=== PATIENT | male | born 1990 | race Caucasian/White ===

== ENCOUNTER 2019-04-09 20:26 | Emergency (ER) | payer SELFPAY ==
[2019-04-09 20:30] VITALS: BP 133/89; PULSE 110; RESP 18; TEMP 36.4; O2SAT 98; BMI 19.0
[2019-04-09 20:31] VITALS: BMI 19.0
[2019-04-09] MEDS: ketorolac 60 mg/2 mL INJ 30 MG IVP (21:13)
[2019-04-09] MEDS: diphenhydrAMINE 50 mg/mL SDV 1mL IVP (21:13)
[2019-04-09] MEDS: dexamethasone 10 mg/mL INJ 8 MG IV (21:13)
[2019-04-09] MEDS: ondansetron 2 mg/ML SDV 2 mL 4 MG IVP (21:14)
[2019-04-09] MEDS: sodium chloride 0.9% 1,000 ML 999 ML IV (21:14)
--- NOTE | 2019-04-09 22:13 | W.ED.HA ---
HPI - Headache General: Chief Complaint: Headache Stated Complaint: headache,back pain Time Seen by Provider: 04/09/19 20:34 Source: patient Mode of arrival: ambulatory Limitations: no limitations History of Present Illness: HPI Narrative: Patient is a 28-year-old male who presents to ED today with complaints of lower back pain and headache; patient states he was walking when he heard a pop in his lower back and began having pain radiating down into bilateral legs; patient states he started developing a headache afterwards; patient states he has a history of migraine headaches and reports his pain feels similar; patient denies numbness, tingling to his legs; denies saddle anesthesia or bowel or bladder dysfunction MD elicited complaint: headache Onset (ago): hour(s) Exacerbating factors: other (Headache worse with light and sound) Associated symptoms: Deny fever(s), nausea, rash or vomiting Review of Systems Const: Denies: fever, chills or body aches Eyes: Reports: photophobia; Denies: change in vision, blurry vision, eye discomfort or eye discharge ENMT: Denies: throat pain, enlarged tonsils or painful swallowing GI: Denies: nausea or vomiting Musc: Reports: back pain; Denies: neck pain, extremity pain, extremity swelling, joint pain, joint swelling, muscle cramps or muscle weakness Skin/Breast: Denies: rash Neuro: Reports: headache; Denies: numbness in extremities, weakness in extremities, changes in sensation, lack of coordination, dizziness or vertigo PFSH ED PFSH: Statuses (acute, chronic, etc) shown below reflect problem list status as previously entered and may not be historically accurate Social History Smoking and tobacco status: current every day smoker Physical Exam Const: COMMON NORMALS: no apparent distress, average body habitus, oriented x3, no limitations, healthy appearing, alert and well nourished ORIENTATION/CONSCIOUSNESS: Yes oriented to person, Yes oriented to place and Yes oriented to time HENMT: COMMON NORMALS: normocephalic and head/scalp atraumatic HEAD & SCALP: normocephalic and atraumatic Eye: COMMON NORMALS: PERRL and EOMs intact bilaterally PUPIL: Yes PERRL Neck/C-Spine: COMMON NORMALS: full ROM, no lymphadenopathy, supple and no meningeal signs Resp: COMMON NORMALS: normal respiratory effort and clear to auscultation bilaterally AUSCULTATION: clear to auscultation bilaterally Cardio: COMMON NORMALS: regular rate and regular rhythm RATE: regular rate RHYTHM: regular rhythm Back/Pelvis: THORACIC SPINE/UPPER BACK: Yes normal to inspection and Yes thoracic ROM normal LUMBAR SPINE/LOWER BACK: Yes lumbar spinal tenderness and Yes paraspinal muscle tenderness Extremity: COMMON NORMALS: normal to inspection Neuro: PAULINA COMA SCALE: document GCS findings Marlette coma scale eye opening: Spontaneous Paulina coma scale verbal response: Orientated Paulina coma scale motor response: Obey commands Marlette coma scale total score: 15 COMMON NORMALS: oriented x3, moves all extremities, no focal motor deficits and no sensory deficits noted SENSORIUM/ORIENTATION: Yes alert, Yes oriented to person, Yes oriented to place and Yes oriented to time MENINGEAL SIGNS: Yes no meningeal signs CRANIAL NERVES: Yes CN normal except as noted GAIT: Yes normal gait MOTOR EXAM: strength 5/5 throughout OTHER: Negative straight leg raise bilaterally Skin: COMMON NORMALS: no rashes or lesions noted GENERAL SKIN EXAM: no rashes or lesions noted Course Vital Signs: Vital signs: Vital Signs Temperature 97.5 F L 04/09/19 20:30 Pulse Rate 110 H 04/09/19 20:30 Respiratory Rate 18 04/09/19 20:30 Blood Pressure 133/89 04/09/19 20:30 Pulse Oximetry 98 04/09/19 20:30 MDM - Headache MDM Narrative: Medical decision making narrative: Patient states his headache is improving; states he is getting claustrophobic in his room and wants to leave immediately; patient will sign out AMA Discharge Plan Discharge Patient Disposition: Left Against Medical Advice Clinical Impression: Headache Qualifiers: Headache type: unspecified Headache chronicity pattern: acute headache Intractability: not intractable Qualified Code(s): R51 - Headache Condition: Stable Prescriptions: No Action No Known Home Medications RF: 0 Coding Level of Care Code ED [employer] Ac[employer] Attorney for Patira Cohen
== END 2019-04-09 22:44 | disposition left against medical advice (07) ==
PROVIDERS: Emergency Provider Physician Assistant
DX: R51 Headache (principal); Z53.21 Procedure and treatment not carried out due to patient leaving prior to being seen by health care provider; F17.210 Nicotine dependence, cigarettes, uncomplicated
CPT/HCPCS: 96360; 96374; 99281; J1100; J1200; J1885; J2405; J7030

== ENCOUNTER 2019-04-12 20:02 | Emergency (ER) | payer SELFPAY ==
[2019-04-12 20:58] VITALS: BP 112/75; PULSE 113; RESP 18; TEMP 37; O2SAT 98; BMI 19.0
--- NOTE | 2019-04-12 21:32 | ED_ITS ---
Entered by Annabel Rocha, acting as scribe for Elizabeth Mae HPI - General Adult General: Chief complaint: General Medical Stated complaint: FEVER/BODY ACHES Time Seen by Provider: 04/12/19 21:27 Source: patient Mode of arrival: ambulatory Limitations: no limitations History of Present Illness: HPI narrative: 28 yo m came to the er pov for fever and body aches, fever, congestion and cough. Onset was 1 week. Pt states that he was here a few days ago. MD complaint: cough, fever and congestion Onset (ago): week(s) (1 week ago) Location: chest Radiation: non-radiation Pain Consistency: constant Relieving factors: none Associated symptoms: Reports cough, fevers/chills and other (congestion); Deny chest pain, confusion, diaphoresis, dyspnea, headache(s), malaise, nausea, rash, palpitations, syncope or vomiting Review of Systems General: Reports: other (negative unless marked) Const: Denies: fever, chills, body aches, fatigue, malaise or diaphoresis Eyes: Reports: photophobia ENMT: Denies: enlarged tonsils Card: Denies: chest pain, palpitations, irregular heart rhythm, syncope, pre- syncope, shortness of breath on exertion or shortness of breath when lying down Resp: Denies: shortness of breath, productive cough, non-productive cough, wheezing, coughing up blood or chest congestion GI: Denies: abdominal pain, nausea, vomiting, vomiting blood, coffee grounds in vomit, diarrhea, constipation, cramping, blood in stool or black tarry stool : Denies: flank pain, difficulty urinating, painful urination, urinary frequency, urinary urgency, decreased urine ouput, urinary incontinence or blood in urine Musc: Denies: neck pain, back pain, extremity pain, extremity swelling, joint pain, joint swelling, joint warmth or joint stiffness Skin/Breast: Denies: rash, skin tenderness or yellow skin Neuro: Denies: headache, numbness in extremities, weakness in extremities, changes in sensation, lack of coordination, difficulty walking, dizziness, vertigo or confusion Endo: Denies: excessive thirst, tired all the time, cold intolerance, excessive sweating, flushing or hot flashes Amrik/Lymph: Denies: easy bruising, easy bleeding, petechiae or enlarged lymph nodes All/Imm: Denies: hives, throat swelling, tongue swelling, facial swelling or acute wheezing PFSH ED PFSH: Statuses (acute, chronic, etc) shown below reflect problem list status as previously entered and may not be historically accurate Social History Smoking and tobacco status: current every day smoker Physical Exam Const: COMMON NORMALS: no apparent distress, oriented x3, no limitations, healthy appearing and well nourished EXAM LIMITATIONS: no altered mental status GENERAL APPEARANCE: cooperative, well kempt and well developed ORIENTATION/CONSCIOUSNESS: Yes awake HENMT: COMMON NORMALS: normocephalic, head/scalp atraumatic, hearing grossly normal bilaterally, external ears normal, EAC's normal, external nose normal and moist oral mucous membranes HEAD & SCALP: normal to inspection, normocephalic and atraumatic FACE & SINUS: normal facial exam and face symmetric NOSE: external nose normal and nares normal EXTERNAL EAR: Yes external ears normal EXTERNAL AUDITORY CANAL: EAC's normal MOUTH: oral and palatal mucosa normal and tongue normal Eye: COMMON NORMALS: PERRL, EOMs intact bilaterally, conjunctivae normal and no scleral icterus GENERAL EYE: normal appearance of both eyes and normal light reflex CONJUNCTIVA: Yes conjunctivae normal SCLERA: sclerae normal CORNEA: Yes corneas normal PUPIL: Yes PERRL DIRECT OPHTHALMOSCOPY: Yes normal light reflex Neck/C-Spine: COMMON NORMALS: full ROM, no lymphadenopathy, supple, no meningeal signs and no JVD GENERAL: Yes normal visual inspection and Yes trachea midline CERVICAL SPINE: Yes cervical ROM normal Chest: COMMONS NORMALS: inspection of chest normal and palpation of chest normal Resp: COMMON NORMALS: normal respiratory effort, no retractions, no use of accessory muscles and clear to auscultation bilaterally EFFORT & INSPECTION: Yes able to speak in complete sentences AUSCULTATION: clear to auscultation bilaterally Cardio: COMMON NORMALS: no JVD, regular rate, regular rhythm, S1 normal heart sound, S2 normal heart sound, no gallops, no clicks, no murmurs and no rub JUGULAR VENOUS DISTENTION: no JVD RATE: regular rate RHYTHM: regular rhythm HEART SOUNDS: S1 normal and S2 normal GI: COMMON NORMALS: soft to palpation, non-tender, no hepatosplenomegaly and no masses INSPECTION: Yes normal to inspection PALPATION: Yes soft and Yes no hepatosplenomegaly : COMMON NORMALS: Yes no CVA tenderness BLADDER/KIDNEY EXAM: Yes no CVA tenderness Back/Pelvis: COMMON NORMALS: no CVA tenderness, thoracic and lumbar spine no rmal to inspection, no thoracic nor lumbar tenderness and thoraco-lumbar ROM normal Extremity: COMMON NORMALS: normal to inspection, full ROM, normal capillary refill, no joint enlargement, no clubbing, cyanosis or edema and no calf tenderness Neuro: COMMON NORMALS: oriented x3, CN's II-XII intact bilaterally, moves all extremities, no focal motor deficits and no sensory deficits noted MENINGEAL SIGNS: Yes no meningeal signs Psych: COMMON NORMALS: mental status grossly normal, thought process normal, cooperative, affect normal, speech normal and activity/motor behavior normal APPEARANCE: Yes well kempt SPEECH: Yes normal speech THOUGHT PROCESS: normal thought process Skin: COMMON NORMALS: no rashes or lesions noted, skin turgor normal, no jaundice, no petechiae and no mottling GENERAL SKIN EXAM: no rashes or lesions noted and turgor normal Course Vital Signs: Vital signs: Vital Signs Temperature 98.6 F 04/12/19 20:58 Pulse Rate 113 H 04/12/19 20:58 Respiratory Rate 18 04/12/19 20:58 Blood Pressure 112/75 04/12/19 20:58 Pulse Oximetry 98 04/12/19 20:58 MDM - General Adult MDM Narrative: Medical decision making narrative: Dilip is a 28-year-old male who comes in with bronchitis type symptoms. He has had the symptoms for over a week so I do not think a flu swab will be helpful as he is outside of the window for treatment. His vital signs are stable there is no hemodynamic instability. We will discharge him home with treatment for bronchitis. Discharge Plan Discharge Patient Disposition: Home, Self-Care Clinical Impression: Bronchitis Condition: Stable Prescriptions: New Zithromax Z-Michael 250 mg tablet See Rx Instructions .ROUTE .COMPLEX Qty: 6 RF: 0 Tessalon Perles 100 mg capsule 100 mg PO BID PRN (Reason: cough) Qty: 10 RF: 0 Discharge Orders: Discharge Order (Routine); Ordered 04/12/19 Ordered By: Elizabeth Mae Referrals: Saray Al DO [Physician] - 4-7 days Discharge Diet: Usual diet Discharge Activity: Increase activity as tolerated Patient Instructions: Acute Bronchitis (ED) Activity Restrictions/Additional Instructions: Please return to the ER immediately for any of the signs or symptoms listed on your discharge instruction sheets, worsening/changing of your symptoms, you are not getting better as quickly as expected, or for ANY other cause or concerns. Coding Level of Care Code ED Refinery Operator for Darylg Fwnathalia The documentation recorded by the Aj melendrez Stephanie Lyn, accurately reflects the service I personally performed and the decisions made by Tu briscoe Eli N Apr 12, 2019 20:02
[2019-04-12] MEDS: benzonatate 100 mg Capsule 200 MG PO (22:29)
[2019-04-12] MEDS: cefTRIAXone 1,000 mg SDV 1000 MG IM (22:29)
[2019-04-12] MEDS: lidocaine 1% INJ 20 mL IV (22:29)
[2019-04-12 22:42] VITALS: BP 123/81; PULSE 84; RESP 16; TEMP 36.5; O2SAT 99
== END 2019-04-12 22:44 | disposition home or self-care (01) ==
PROVIDERS: Emergency Provider Emergency Medicine
DX: J40 Bronchitis, not specified as acute or chronic (principal); F17.210 Nicotine dependence, cigarettes, uncomplicated
CPT/HCPCS: 96372; 99281; 99282; J0696; J2001

== ENCOUNTER 2019-09-19 22:08 | Emergency (ER) | payer SELFPAY ==
[2019-09-19 22:11] VITALS: BP 119/80; PULSE 66; RESP 17; TEMP 36.6; O2SAT 98; BMI 21.7
[2019-09-19 22:16] VITALS: BP 119/80; PULSE 61; RESP 18; O2SAT 98
[2019-09-19] MEDS: tetanus-dipt-pertussis 0.5 mL SDV IM (22:46)
--- NOTE | 2019-09-19 22:46 | ED_ITS ---
HPI - Wound/Laceration General: Chief Complaint: Wound/Laceration Stated Complaint: face injury Time Seen by Provider: 09/19/19 22:21 History of Present Illness: HPI narrative: Patient had in the right upper eye area with a tire on this evening was [place] on swelling around him denies any LOC Onset (ago): minute(s) Location: face Place: home Patient tetanus UTD: No Context: accidental Associated symptoms: Reports no associated symptoms; Denies chills, fever(s), nausea or vomiting Review of Systems Const: Denies: fever(s), chills or body aches Eyes: Denies: change in vision or blurry vision ENMT: Denies: throat pain or nasal congestion Card: Denies: chest pain or dyspnea on exertion Resp: Denies: dyspnea, productive cough or non-productive cough GI: Denies: abdominal pain, nausea or vomiting : Denies: difficulty urinating Musc: Denies: extremity pain Skin/Breast: Reports: other (Laceration right eyelid); Denies: rash Neuro: Denies: headache(s) Psych: Denies: anxiety or depression Amrik/Lymph: Denies: easy bruising PFSH ED PFSH: Social History Smoking and tobacco status: current every day smoker Current gender identity: Male Physical Exam Const: COMMON NORMALS: no acute distress, average body habitus and patient oriented x3 HENMT: COMMON NORMALS: normocephalic HEAD & SCALP: normal to inspection and normocephalic FACE & SINUS: normal facial exam Eye: COMMON NORMALS: conjunctivae normal GENERAL EYE: appearance normal, both eyes and all related structures CONJUNCTIVA: Yes conjunctivae normal OTHER: Has small laceration upper right eyelid Neck/C-Spine: COMMON NORMALS: no JVD Chest: COMMONS NORMALS: normal inspection of the chest Resp: COMMON NORMALS: normal respiratory effort and clear to auscultation bilaterally AUSCULTATION: clear to auscultation bilaterally Cardio: COMMON NORMALS: no JVD, regular rate and regular rhythm RATE: regular rate RHYTHM: regular rhythm GI: COMMON NORMALS: Normal to inspection, nondistended, normoactive bowel sounds present Extremity: COMMON NORMALS: normal to inspection and full ROM Neuro: COMMON NORMALS: patient oriented x3 Procedures Laceration Laceration 1: Site: other Side (If applicable): right Size (cm): 2 Description: linear Depth: simple, single layer Local Anesthetic: other anesthetic (Skin adhesive) Pre-repair: wound explored Skin layer closed with: other Course Vital Signs: Vital signs: Vital Signs Temperature 97.9 F 09/19/19 22:11 Pulse Rate 61 09/19/19 22:16 Respiratory Rate 18 09/19/19 22:16 Blood Pressure 119/80 09/19/19 22:16 Pulse Oximetry 98 09/19/19 22:16 Discharge Plan Discharge Patient Disposition: Home, Self-Care Clinical Impression: Laceration Condition: Stable Prescriptions: No Action Zithromax Z-Michael 250 mg tablet See Rx Instructions .ROUTE .COMPLEX Qty: 6 RF: 0 Tessalon Perles 100 mg capsule 100 mg PO BID PRN (Reason: cough) Qty: 10 RF: 0 Discharge Orders: Discharge Order (Routine); Ordered 09/19/19 Ordered By: Agusto Bess Discharge Diet: Usual diet Discharge Activity: Resume usual activity Patient Instructions: Skin Adhesive Care (ED) Activity Restrictions/Additional Instructions: Keep area clean watch for signs infection any problems develop follow-up with your family medical provider here in the ER Coding Level of Care Code ED Polysomnograph Tech for Patria Fwd Exam Comprehensive
== END 2019-09-19 22:49 | disposition home or self-care (01) ==
PROVIDERS: Emergency Provider Nurse Practitioner Family
DX: S01.111A Laceration without foreign body of right eyelid and periocular area, initial encounter (principal); X58.XXXA Exposure to other specified factors, initial encounter; F17.210 Nicotine dependence, cigarettes, uncomplicated; Z23 Encounter for immunization
CPT/HCPCS: 12011; 12345; 90471; 90715; 99281; 99282

== ENCOUNTER 2019-12-09 13:13 | Emergency (ER) | payer SELFPAY ==
[2019-12-09 13:15] VITALS: BP 118/79; PULSE 75; RESP 18; TEMP 36.3; O2SAT 99; BMI 21.7
--- NOTE | 2019-12-09 13:31 | ED_ITS ---
HPI - URI/Sore Throat General: Chief Complaint: General Medical Stated Complaint: SORE THROAT Time Seen by Provider: 12/09/19 13:21 Source: patient Mode of arrival: ambulatory Limitations: no limitations History of Present Illness: HPI Narrative: Patient is a 29-year-old male who presents to ED today with complaints of a sore throat, sinus pain/congestion, nasal congestion, postnasal drainage, and a cough. He states symptoms been present over the past 2 days. He is not been running fevers. Denies sick exposure. MD elicited complaint: cough, sore throat, rhinorrhea, nasal congestion and sinus pain Consistency: constant Severity: mild Description of mucous: clear Able to tolerate fluids by mouth: Yes Exacerbating factors: nothing Relieving factors: nothing Associated symptoms: Reports nasal congestion and sinus pain; Deny abdominal pain, chills, chest pain, diarrhea, ear or mastoid pain, fev er(s), headache(s), nausea or vomiting Treatments prior to arrival: none Review of Systems Const: Denies: fever(s), chills, body aches, change in appetite, change in weight, fatigue, malaise or night sweats Eyes: Denies: change in vision, blurry vision, photophobia, eye discomfort, eye discharge, floaters or seeing flashes ENMT: Reports: throat pain, odynophagia, nasal discharge, nasal congestion, post nasal drip and sinus pain; Denies: enlarged tonsils, swelling of lips/tongue, oral sores, ear or mastoid pain or ear discharge Card: Denies: chest pain, palpitations or lightheadedness Resp: Reports: non-productive cough; Denies: dyspnea, productive cough, wheezing, pain on inspiration or hemoptysis GI: Denies: abdominal pain, nausea, vomiting or diarrhea Musc: Denies: neck pain or back pain Skin/Breast: Denies: rash Neuro: Denies: headache(s) All/Imm: Denies: facial swelling or seasonal rhinorrhea PFSH ED PFSH: Social History Smoking and tobacco status: current every day smoker Current gender identity: Male Physical Exam Const: COMMON NORMALS: no acute distress, average body habitus, patient oriented x3, no limitations, healthy appearing, alert and well nourished HENMT: COMMON NORMALS: normocephalic, atraumatic, hearing grossly normal bilaterally, external ears normal, EAC's normal, TM's normal bilaterally, Normal external nose present, Normal nasal mucous membranes and turbinates present, moist oral mucous membranes, oropharynx normal and gingiva normal HEAD & SCALP: normal to inspection, normocephalic and atraumatic FACE & SINUS: normal facial exam and sinus tenderness maxillary NOSE: Normal external nose present and Normal nasal mucous membranes and turbinates present EXTERNAL EAR : Yes external ears normal EXTERNAL AUDITORY CANAL: EAC's normal TYMPANIC MEMBRANE: TM's normal bilaterally MOUTH: Normal oral and palatal mucosa present, lip normal and tongue normal TEETH & GINGIVA: Yes poor dentition THROAT: posterior oropharynx normal, tonsils normal and uvula midline Eye: COMMON NORMALS: Equal, round and reactive pupils present, EOMs intact bilaterally, conjunctivae normal and no scleral icterus GENERAL EYE: appearance normal, both eyes and all related structures CONJUNCTIVA: Yes conjunctivae normal PUPIL: Yes Equal, round and reactive pupils present Neck/C-Spine: COMMON NORMALS: full ROM and no meningeal signs GENERAL: Yes normal visual inspection and Yes lymphadenopathy Lymphadenopathy location: submandibular and anterior cervical Resp: COMMON NORMALS: normal respiratory effort and clear to auscultation bilaterally AUSCULTATION: clear to auscultation bilaterally Cardio: COMMON NORMALS: regular rate and regular rhythm RATE: regular rate RHYTHM: regular rhythm Neuro: COMMON NORMALS: patient oriented x3 SENSORIUM/ORIENTATION: Yes alert MENINGEAL SIGNS: Yes no meningeal signs Skin: COMMON NORMALS: no rashes or lesions noted GENERAL SKIN EXAM: no rashes or lesions noted Course Vital Signs: Vital signs: Vital Signs Temperature 97.3 F L 12/09/19 13:15 Pulse Rate 75 12/09/19 13:15 Respiratory Rate 18 12/09/19 13:15 Blood Pressure 118/79 12/09/19 13:15 Pulse Oximetry 99 12/09/19 13:15 MDM - URI/Sore Throat Lab Data: Labs: Lab Results 12/09/19 Range/Units 13:45 Group A Strep Rapi d Negative (Negative) Discharge Plan Discharge Patient Disposition: Home Clinical Impression: Upper respiratory virus Condition: Stable Prescriptions: No Action Zithromax Z-Michael 250 mg tablet See Rx Instructions .ROUTE .COMPLEX Qty: 6 RF: 0 Tessalon Perles 100 mg capsule 100 mg PO BID PRN (Reason: cough) Qty: 10 RF: 0 Discharge Orders: Discharge Order (Routine); Ordered 12/09/19 Ordered By: Mariaa Ladd Patient Instructions: Viral Syndrome (ED) Stand Alone Forms: Work/School Release Coding Level of Care Code ED [employer] 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
--- NOTE | 2019-12-09 13:50 | PC.NURSE ---
Pt was COVID swabbed.
[2019-12-09 14:14] LABS: Rapid Strep A Test Negative (Negative)
[2019-12-10 13:13] LABS: Quest SARS-CoV-2 RNA NOT DETECTED (NOT DETECTED)
--- NOTE | 2019-12-10 16:39 | PC.NURSE ---
pt contacted and results of his covid test were given
== END 2019-12-09 14:31 | disposition home or self-care (01) ==
PROVIDERS: Emergency Provider Physician Assistant
DX: J06.9 Acute upper respiratory infection, unspecified (principal); F17.210 Nicotine dependence, cigarettes, uncomplicated
CPT/HCPCS: 12345; 87081; 87635; 87880; 99281; 99282

== ENCOUNTER 2019-12-22 19:15 | Emergency (ER) | payer SELFPAY ==
[2019-12-22 19:39] VITALS: BP 130/83; PULSE 61; RESP 18; TEMP 36.7; O2SAT 99; BMI 21.7
--- NOTE | 2019-12-22 19:46 | ED_ITS ---
HPI - Extremity Problem General: Chief complaint: Extremity Injury, Upper Stated complaint: nail puncture, right hand Time Seen by Provider: 12/22/19 19:45 History of Present Illness: HPI Narrative: Patient is a 29-year-old male comes to the ED nail puncture wound to right hand. Patient says he smacked a wooden board with palm of right hand and did not notice there was a nail sticking out. Reports nail puncture instead removed nail from hand. Patient says he had a tetanus within the last 6 months. Has full function of movement of right hand but does say it is a little sore. He rates his pain is right hand 4 out of 10 currently. He has not taken any at home pain medications and states he does not want any pain meds while here in the ED. Associated symptoms: Deny chest pain, fever(s) or rash Review of Systems Const: Denies: fever(s), chills or fatigue Eyes: Denies: change in vision or eye discomfort ENMT: Denies: throat pain, odynophagia, nasal discharge or nasal congestion Card: Denies: chest pain, palpitations, edema, swelling of feet/ankles, dyspnea on exertion or orthopnea Resp: Denies: dyspnea, productive cough or non-productive cough GI: Denies: abdominal pain, nausea, vomiting, diarrhea, constipation or hematochezia : Denies: flank pain, difficulty urinating, dysuria or hematuria Musc: Denies: neck pain, back pain or extremity swelling Skin/Breast: Reports: new lesions (Puncture wound from nail and right hand.); Denies: rash Neuro: Denies: headache(s), numbness in extremities or weakness in extremities [facility] ED PFSH: Social History Smoking and tobacco status: current every day smoker Current gender identity: Male Physical Exam Const: COMMON NORMALS: no acute distress, patient oriented x3, healthy appearing and alert GENERAL APPEARANCE: cooperative and comfortable HENMT: COMMON NORMALS: normocephalic HEAD & SCALP: normocephalic MOUTH: Normal oral and palatal mucosa present THROAT: posterior oropharynx normal and uvula midline Neck/C-Spine: COMMON NORMALS: supple GENERAL: Yes normal visual inspection Resp: COMMON NORMALS: normal respiratory effort, No retractions, No use of accessory muscles and clear to auscultation bilaterally AUSCULTATION: clear to auscultation bilaterally Cardio: COMMON NORMALS: regular rate, regular rhythm, S1 normal heart sound present, S2 normal heart sound present, No gallops present (Cardio), No clicks present (Cardio), No murmurs present (Cardio) and Peripheral pulses 2+ th roughout RATE: regular rate RHYTHM: regular rhythm HEART SOUNDS: S1 normal heart sound present and S2 normal heart sound present PERIPHERAL PULSES: Peripheral pulses 2+ throughout GI: COMMON NORMALS: Normal to inspection, nondistended, normoactive bowel sounds present, Soft to palpation, non-tender and no masses PALPATION: Yes Soft to palpation : COMMON NORMALS: Yes no CVA tenderness BLADDER/KIDNEY EXAM: Yes no CVA tenderness Back/Pelvis: COMMON NORMALS: no CVA tenderness Extremity: NARRATIVE EXTREMITY EXAM: Patient's right hand in the palm region had small puncture wound. No active bleeding seen. No erythema or warmth noted. Mild tenderness upon palpation. GENERAL: Yes normal exam except as noted Neuro: COMMON NORMALS: patient oriented x3 and moves all extremities SENSORIUM/ORIENTATION: Yes alert Skin: NARRATIVE SKIN EXAM: Patient's right hand in the palm region had small puncture wound. No active bleeding seen. No erythema or warmth noted. Mild tenderness upon palpation. GENERAL SKIN EXAM: dry skin Course Vital Signs: Vital signs: Vital Signs Temperature 98.4 F 12/22/19 20:43 Pulse Rate 67 12/22/19 20:43 Respiratory Rate 14 12/22/19 20:43 Blood Pressure 128/74 12/22/19 20:43 Pulse Oximetry 100 12/22/19 20:43 MDM - Extremity (Nontraumatic) MDM Narrative: Medical decision making narrative: Patient is a 29-year-old male comes to the ED after having a puncture wound in right hand from a nail. Nail was removed. Physical exam shows a small puncture wound in the palm of right hand. No active bleeding, erythema or warmth seen. Patient is up-to-date on his tetanus. X-ray of right hand showed no acute fractures or findings foreign body seen. Patient was diagnosed with puncture wound of hand and put on a prescription for cephalexin as prophylactic treatment for infection. He was told to keep puncture wound clean bandaged and covered daily. Return to ED precautions given. Follow-up PCP in 7 to 10 days. Patient understood and agree with plan. Imaging Data^: Xray Ortho: Attestation: I personally reviewed and interpreted this imaging study as follows: My impression: Right hand x-ray showed no acute fractures or findings. No foreign body seen. Discharge Plan Discharge Patient Disposition: Home Clinical Impression: Puncture wound of hand Qualifiers: Encounter type: initial encounter Foreign body presence: without foreign body Laterality: right Qualified Code(s): S61.431A - Puncture wound without foreign body of right hand, initial encounter Condition: Stable Prescriptions: New cephalexin 500 mg capsule 500 mg PO TID 7 Days Qty: 21 RF: 0 No Action Zithromax Z-Michael 250 mg tablet See Rx Instructions .ROUTE .COMPLEX Qty: 6 RF: 0 Tessalon Perles 100 mg capsule 100 mg PO BID PRN (Reason: cough) Qty: 10 RF: 0 Discharge Orders: Discharge Order (Routine); Ordered 12/22/19 Ordered By: Juancarlos Duncan Discharge Diet: Regular Discharge Activity: Limit activity as instructed Patient Instructions: Puncture Wound (ED) Activity Restrictions/Additional Instructions: Follow-up with medical provider as directed in 7- 10 days. Take medications as prescribed. Clean the wound daily and re-bandage. You can use triple antibiotic ointment on wound daily as well to help prevent infection. Return to the ER or your medical provider if condition worsens. Please read and understand discharge instructions. If any questions, please ask. Stand Alone Forms: Work/School Release Discharge Date/Time: 12/22/19 20:45 Coding Level of Care Code ED Groundman/Lineman for Patria Fwnathalia Exam Comprehensive
--- NOTE | 2019-12-22 19:57 | XR_ITS ---
WS: [id number] XR hand RT min 3V* [id number] REASON FOR EXAM: puncture wound to hand by nail FINDINGS: No cortical disruption or focal bony abnormality. Articular intervals of the right hand are well preserved. No soft tissue abnormality, specifically no radiopaque foreign body noted. XR/XR hand RT min 3V* [id number] IMPRESSION: No significant abnormality.
[2019-12-22 19:58] VITALS: BP 122/88; PULSE 64; RESP 14; O2SAT 98
--- NOTE | 2019-12-22 20:05 | PC.NURSE ---
Last tetanus vaccine reported to be 3 months ago
[2019-12-22] MEDS: cephALEXin 500 mg Capsule PO (20:07)
[2019-12-22 20:43] VITALS: BP 128/74; PULSE 67; RESP 14; TEMP 36.9; O2SAT 100
== END 2019-12-22 20:45 | disposition home or self-care (01) ==
PROVIDERS: Emergency Provider Physician Assistant
DX: S61.431A Puncture wound without foreign body of right hand, initial encounter (principal); F17.210 Nicotine dependence, cigarettes, uncomplicated; W45.0XXA Nail entering through skin, initial encounter
CPT/HCPCS: 12345; 73130; 99281; 99283

== ENCOUNTER → 2021-04-13 09:09 | Outpatient (BNVA) | payer SELFPAY | PROVIDERS: Visit Provider Nurse Practitioner Family | DX: Z20.822 Contact with and (suspected) exposure to COVID-19 (principal) | CPT/HCPCS: 87635 ==

== ENCOUNTER 2021-08-15 10:04 | Emergency (ER) | payer SELFPAY ==
[2021-08-15 10:30] VITALS: BP 120/78; PULSE 51; RESP 16; TEMP 36.7; O2SAT 100; BMI 19.5
[2021-08-15 11:43] LABS: Basophils % 0.8 %; Eosinophils # 0.1 10^3/uL (0.0-0.8); Eosinophils % 2.3 %; Hematocrit 44.7 % (42.0-52.0); Hemoglobin 14.7 g/dL (11.7-16.6); Lymphocytes # 1.5 10^3/uL (0.8-4.8); Lymphocytes % 39.4 %; Mean Corpuscular HGB Conc 32.9 g/dL (30.0-36.0); Mean Corpuscular Hemoglobin 30.2 pg (28.0-34.0); Monocytes # 0.3 10^3/uL (0.2-0.9); Monocytes % 8.8 %; Neutrophils # 1.86 10^3/uL (1.8-7.7); Neutrophils % 48.2 %; Nucleated Red Blood Cells % 0 %; Platelet Count 183 10^3/cmm (130-400); Red Blood Count 4.86 10^6/uL (4.1-5.3); Red Cell Distribution Width 13.7 % (12.1-15.1); White Blood Count 3.9 10^3/uL (4.0-10.0)
--- NOTE | 2021-08-15 11:43 | ED_ITS ---
HPI - Abdominal Pain General: Chief Complaint: Abdominal Pain Stated Complaint: abdomen pain Time Seen by Provider: 08/15/21 10:06 Source: patient and family Mode of arrival: ambulatory Limitations: no limitations History of Present Illness: Patient is a 31-year-old male who presents to ED today with a complaint of abdominal pain over the past 3 days. Patient states pain has not seemed to worsen over the past 3 days and states it is intermittent. It does not seem to be affected by eating. Patient states he is only here because he noticed his stools have been black in color and slightly looser in consistency. Patient is not having any nausea or vomiting. No fevers. Denies NSAID or alcohol use. No other risk factors for GI bleeds. No history of a bleed. Patient denies any rectal pain. No history of hemorrhoids. MD elicited complaint: abdominal pain Pertinent past history: none Onset (ago): day(s) (3 days) Pain Consistency: intermittent Location: Diffuse Severity: mild Quality: cramping Radiation: none Migration to: no migration Exacerbating factors: nothing Relieving factors: nothing Associated Symptoms: Reports melena; Denies chills, constipation, diarrhea, dysuria, fever(s), hematochezia, nausea and vomiting Review of Systems Const: Denies: fever(s), chills, body aches, fatigue or malaise Card: Denies: chest pain Resp: Denies: dyspnea GI: Reports: abdominal pain and melena; Denies: nausea, vomiting, diarrhea, constipation, pain on defecation, rectal pain, rectal swelling or hematochezia : Denies: flank pain or dysuria Musc: Denies: neck pain, back pain, extremity pain or joint pain Skin/Breast: Denies: rash Neuro: Denies: headache(s) PFS ED PFSH: Social History Smoking and tobacco status: current every day smoker e-cigarettes E-Cigarette Details: vaporizer device Current gender identity: Male Physical Exam Const: COMMON NORMALS: no acute distress, patient oriented x3, no limitations, alert and well nourished GENERAL APPEARANCE: cooperative ORIENTATION/CONSCIOUSNESS: Yes awake, Yes oriented to person, Yes oriented to place and Yes oriented to time HENMT: COMMON NORMALS: normocephalic and atraumatic HEAD & SCALP: normal to inspection, normocephalic and atraumatic Resp: COMMON NORMALS: normal respiratory effort and clear to auscultation bilaterally AUSCULTATION: clear to auscultation bilaterally Cardio: COMMON NORMALS: regular rate and regular rhythm RATE: regular rate RHYTHM: regular rhythm GI: COMMON NORMALS: Normal to inspection, nondistended, normoactive bowel sounds present, Soft to palpation, No hepatosplenomegaly present and no masses INSPECTION: Yes normal to inspection AUSCULTATION: Yes normoactive bowel sounds PALPATION: Yes Soft to palpation, Yes Tenderness to palpation present (GI) (very mild generalized discomfort; certainly a non-surgical exam), No Guarding due to palpation present (GI), No Rigid due to palpation and Yes No hepatosplenomegaly present RECTAL EXAM: Yes visual inspection normal, Yes normal sphincter tone and Yes heme negative stool : COMMON NORMALS: Yes no CVA tenderness BLADDER/KIDNEY EXAM: Yes no CVA tenderness Back/Pelvis: COMMON NORMALS: no CVA tenderness Neuro: COMMON NORMALS: patient oriented x3 SENSORIUM/ORIENTATION: Yes alert, Yes oriented to person, Yes oriented to place and Yes oriented to time Course Vital Signs: Vital signs: Vital Signs Temperature 98.1 F 08/15/21 10:30 Pulse Rate 51 L 08/15/21 10:30 Respiratory Rate 16 08/15/21 10:30 Blood Pressure 120/78 08/15/21 10:30 Pulse Oximetry 100 08/15/21 10:30 MDM - Abdominal Pain Medical Decision Making Patient's abdominal exam is very reassuring as he has very minimal generalized tenderness. Certainly a nonsurgical abdomen at this time. His vital signs are normal. Blood work is normal. Hemoccult is negative. Recommend patient do a bland liquid diet and advance as tolerated. He may follow-up with his primary care provider in 3 to 5 days if symptoms persist. Strict return ED precautions verbally given. Lab Data : 08/15/21 11:35 08/15/21 11:35 Labs/Radiology: Laboratory Results WBC 3.9 10^3/uL (4.0-10.0) L 08/15/21 11:35 RBC 4.86 10^6/uL (4.1-5.3) 08/15/21 11:35 Hgb 14.7 g/dL (11.7-16.6) 08/15/21 11:35 Hct 44.7 % (42.0-52.0) 08/15/21 11:35 MCV 92.0 fl (80-94) 08/15/21 11:35 MCH 30.2 pg (28.0-34.0) 08/15/21 11:35 MCHC 32.9 g/dL (30.0-36.0) 08/15/21 11:35 RDW 13.7 % (12.1-15.1) 08/15/21 11:35 Plt Count 183 10^3/cmm (130-400) 08/15/21 11:35 MPV 10.0 fL (7.4-10.4) 08/15/21 11:35 Neut % (Auto) 48.2 % 08/15/21 11:35 Lymph % (Auto) 39.4 % 08/15/21 11:35 [place] % (Auto) 8.8 % 08/15/21 11:35 Eos % (Auto) 2.3 % 08/15/21 11:35 Baso % (Auto) 0.8 % 08/15/21 11:35 Neut # (Auto) 1.86 10^3/uL (1.8-7.7) 08/15/21 11:35 Lymph # (Auto) 1.5 10^3/uL (0.8-4.8) 08/15/21 11:35 [place] # (Auto) 0.3 10^3/uL (0.2-0.9) 08/15/21 11:35 Eos # (Auto) 0.1 10^3/uL (0.0-0.8) 08/15/21 11:35 Baso # (Auto) 0.0 10^3/uL (0.0-0.1) 08/15/21 11:35 Nucleated RBC % (auto) 0 % 08/15/21 11:35 Nucleated RBCs # 0.0 /100WBC 08/15/21 11:35 Sodium 138 mmol/L (136-145) 08/15/21 11:35 Potassium 5.1 mmol/L (3.5-5.1) 08/15/21 11:35 Chloride 102 mmol/L (98-107) 08/15/21 11:35 Carbon Dioxide 29 mmol/L (22-29) 08/15/21 11:35 Anion Gap 12.1 (5-19) 08/15/21 11:35 BUN 11 mg/dL (6-20) 08/15/21 11:35 Creatinine 0.8 mg/dL (0.7-1.2) 08/15/21 11:35 GFR Calculation 114.3 mL/min (90-130) 08/15/21 11:35 Glucose 90 mg/dL (65-115) 08/15/21 11:35 Calculated Osmolality 285 mOsm/kg (285-295) 08/15/21 11:35 Calcium 9.2 mg/dL (8.5-10.5) 08/15/21 11:35 Total Bilirubin 0.4 mg/dL (0.15-1.2) 08/15/21 11:35 AST 21 U/L (0-40) 08/15/21 11:35 ALT 15 U/L (0-41) 08/15/21 11:35 Alkaline Phosphatase 64 IU/L (40-130) 08/15/21 11:35 Total Protein 7.1 g/dL (6.6-8.7) 08/15/21 11:35 Albumin 4.7 g/dL (3.5-5.2) 08/15/21 11:35 Globulin 2.4 g/dL (1.3-4.6) 08/15/21 11:35 Lipase 33 U/L (13-60) 08/15/21 11:35 Urine Color Yellow (Yellow) 08/15/21 12:11 Urine Appearance Clear (CLEAR) 08/15/21 12:11 Urine pH 7 (5-7) 08/15/21 12:11 Ur Specific [place] 1.005 (1.005-1.030) 08/15/21 12:11 Urine Protein Neg (Negative) 08/15/21 12:11 Urine Glucose (UA) Norm (Normal) 08/15/21 12:11 Urine Ketones Negative (Negative) 08/15/21 12:11 Urine Blood Neg (Negative) 08/15/21 12:11 Urine Nitrate Negative (Negative) 08/15/21 12:11 Urine Bilirubin Neg (Negative) 08/15/21 12:11 Urine Urobilinogen Norm mg/dL (Negative) 08/15/21 12:11 Ur Leukocyte Esterase Negative (Negative) 08/15/21 12:11 Discharge Plan Discharge Patient Disposition: Home Clinical Impression: Abdominal pain Qualifiers: Abdominal location: generalized Qualified Code(s): R10.84 - Generalized abdominal pain Condition: Stable Prescriptions: No Action No Known Home Medications 0RF Discharge Orders: Discharge ED (Routine); Ordered 08/15/21 Ordered By: Mariaa Ladd Patient Instructions: Abdominal Pain (ED) Activity Restrictions/Additional Instructions: As we discussed your Hemoccult test (testing for blood in your stool) was negative. Your blood work was normal. At this point I do not have any concerns for a GI bleed or other emergent etiology for your abdominal discomfort. I wou ld like you to do a bland liquid diet over the next 24 to 48 hours and slowly advance as tolerated. You need to return the emergency department for worsening or severe abdominal discomfort, repetitive episodes of vomiting, lightheadedness/dizziness/passing out episodes, fevers, or any other concerns you may have. Otherwise please follow-up with your primary care provider in 3 to 5 days if symptoms do not seem to be improving. Coding Level of Care Code ED Test Director for 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
[2021-08-15 12:02] LABS: Alanine Aminotransferase 15 U/L (0-41); Albumin Level 4.7 g/dL (3.5-5.2); Alkaline Phosphatase 64 IU/L (40-130); Anion Gap 12.1 (5-19); Aspartate Amino Transferase 21 U/L (0-40); Blood Urea Nitrogen 11 mg/dL (6-20); Calcium 9.2 mg/dL (8.5-10.5); Carbon Dioxide 29 mmol/L (22-29); Chloride 102 mmol/L (98-107); Globulin 2.4 g/dL (1.3-4.6); Glomerular Filtration Rate 114.3 mL/min (90-130); Glucose 90 mg/dL (65-115); Lipase 33 U/L (13-60); Osmolality Calculated 285 mOsm/kg (285-295); Potassium 5.1 mmol/L (3.5-5.1); Sodium 138 mmol/L (136-145); Total Bilirubin 0.4 mg/dL (0.15-1.2); Total Protein 7.1 g/dL (6.6-8.7)
[2021-08-15 12:22] LABS: Add Urine Microscopic? NO; Bilirubin Urine Neg (Negative); Blood Urine Neg (Negative); Charge for UA Resulting for Rev; Glucose Urine UA Norm (Normal); Ketones Urine Negative (Negative); Leukocyte Esterase Urine Negative (Negative); Nitrate Urine Negative (Negative); Protein Urine Neg (Negative); Specific Gravity, Urine 1.005 (1.005-1.030); Urine Appearance Clear (CLEAR); Urine Color Yellow (Yellow); Urobilinogen Urine Norm (Negative); pH Urine 7 (5-7)
[2021-08-15 12:39] VITALS: BP 114/71; PULSE 55; RESP 14; O2SAT 100
== END 2021-08-15 12:40 | disposition home or self-care (01) ==
PROVIDERS: Emergency Provider Physician Assistant
DX: R10.84 Generalized abdominal pain (principal)
CPT/HCPCS: 80053; 81003; 83690; 85025; 99283

== ENCOUNTER 2021-10-07 21:43 | Emergency (ER) | payer SELFPAY ==
[2021-10-07 21:52] VITALS: BP 137/88; PULSE 72; RESP 18; TEMP 36.6; O2SAT 97; BMI 19.3
--- NOTE | 2021-10-07 21:55 | ED_ITS ---
HPI - Extremity Injury (Upper) General: Chief Complaint: Wound/Laceration Stated Complaint: Cut Right Finger Time Seen by Provider: 10/07/21 21:44 Source: patient Mode of arrival: ambulatory Limitations: no limitations History of Present Illness: Patient is a 31-year-old male who presents to ED today with complaint of laceration to his right fourth finger that he sustained a few hours ago after cutting it with his pocket knife. Tetanus up-to-date. complaint: injury to: right and finger Onset (ago): hour(s) Other Extremity Injury: Right: fingers Other injuries: none Place: home Severity: mild Context: laceration Associated symptoms: Reports no associated symptoms Treatments prior to arrival: other (irrigation) Review of Systems Musc: Reports: extremity pain (R ring finger); Denies: extremity swelling, joint pain or joint swelling Skin/Breast: Reports: other (laceration R ring finger) Neuro: Denies: numbness in extremities or sensory changes PFSH ED PFSH: Social History Smoking and tobacco status: current every day smoker e-cigarettes E-Cigarette Details: vaporizer device Current gender identity: Male Physical Exam Const: COMMON NORMALS: no acute distress, no limitations, healthy appearing, alert and well nourished GENERAL APPEARANCE: cooperative Extremity: COMMON NORMALS: normal to inspection, full ROM and capillary refill normal GENERAL: Yes normal exam except as noted RIGHT UPPER EXTREMITY: Yes hand & digits OTHER: 1cm laceration to palmar pad of R ring finger; no bleeding; sensation normal; cap refill normal; no nail damage Neuro: SENSORIUM/ORIENTATION: Yes alert Procedures Laceration Laceration 1: Site: hand (R 4th finger) Side (If applicable): right Size (cm): 1.0 Description: linear Depth: simple, single layer Pre-repair: wound explored and irrigated extensively Skin layer closed with: other (skin adhesive/glue) Course 2 Vital Signs: Vital signs: Vital Signs Temperature 97.8 F 10/07/21 21:52 Pulse Rate 72 10/07/21 21:52 Respiratory Rate 18 10/07/21 21:52 Blood Pressure 137/88 10/07/21 21:52 Pulse Oximetry 97 10/07/21 21:52 MDM - Extremity Injury (Upper) Medical Decision Making XR neg. Tetanus UTD. Wound copiously irrigated and repaired with skin adhesive/glue. Wound care and infection precautions discussed. Discharge Plan Discharge Patient Disposition: Home Clinical Impression: Laceration of right ring finger Qualifiers: Encounter type: initial encounter Damage to nail status: without damage Foreign body presence: without foreign body Qualified Code(s): S61.214A - Laceration without foreign body of right ring finger without damage to nail, initial encounter Condition: Stable Prescriptions: No Action No Known Home Medications 0RF Discharge Orders: Discharge ED (Routine); Ordered 10/07/21 Ordered By: Mariaa Ladd Patient Instructions: Laceration (DC), Finger Laceration (ED) Activity Restrictions/Additional Instructions: Keep wound/laceration clean with warm soap and water twice daily. Monitor for signs of infection such as redness, swelling, increased pain, or drainage. Please seek medical re-evaluation if these occur. If you received sutures today these will need to be removed (unless you were told by the provider that they are absorbable). The provider should have discussed with you the length of time until removal. You may return to the emergency department for this service. If your wound was closed with Steri-Strips or glue/adhesive these will fall off within the next week or so. Coding Level of Care Code ED Migration Agent for Patria Cohen
--- NOTE | 2021-10-07 21:59 | XRR_ITS ---
PROCEDURE INFORMATION: Exam: XR Right Finger(s) Exam date and time: 10/07/2021 10:05 PM Age: 31 years old Clinical indication: Injury or trauma; Right; Ring finger; Injury date: Today; Injury details: Laceration to 4th finger tonight; Additional info: Laceration; 4th; Distal TECHNIQUE: Imaging protocol: Radiologic exam of the Right fingers. Views: Minimum 2 views. COMPARISON: No relevant prior studies available. FINDINGS: Bones/joints: Normal. Soft tissues: Normal. No evidence for foreign body. XR/XR finger RT min 2V [id number] IMPRESSION: No acute findings.
[2021-10-07 22:34] VITALS: BP 92/61; RESP 16
== END 2021-10-07 22:36 | disposition home or self-care (01) ==
PROVIDERS: Emergency Provider Physician Assistant
DX: S61.214A Laceration without foreign body of right ring finger without damage to nail, initial encounter (principal); F17.290 Nicotine dependence, other tobacco product, uncomplicated; W26.0XXA Contact with knife, initial encounter
CPT/HCPCS: 12001; 73140; 99283

== ENCOUNTER 2022-01-16 17:37 | Emergency (ER) | payer SELFPAY ==
[2022-01-16 17:44] VITALS: BP 121/74; PULSE 68; RESP 16; TEMP 36.4; O2SAT 99; BMI 19.1
--- NOTE | 2022-01-16 18:33 | XRR_ITS ---
PROCEDURE INFORMATION: Exam: XR Chest Exam date and time: 01/16/2022 6:42 PM Age: 31 years old Clinical indication: Cough TECHNIQUE: Imaging protocol: Radiologic exam of the chest. Views: 1 view. COMPARISON: CR XR chest 1V [id number] 11/18/2017 9:36 AM FINDINGS: Lungs: Continued clear lungs. Pleural spaces: Still no pneumothorax or apparent pleural fluid. Heart/Mediastinum: Still no cardiomegaly. Bones/joints: Continued slight S-shaped scoliosis. No suggestion of acute bony disease. XR/XR chest 1V portable [id number] IMPRESSION: No acute findings or interval change.
--- NOTE | 2022-01-16 19:48 | ED_ITS ---
HPI - General Adult General: Chief complaint: General Medical Stated complaint: Sore throat, headache, fever Time Seen by Provider: 01/16/22 19:35 Source: patient and family Mode of arrival: ambulatory Limitations: no limitations History of Present Illness: This gentleman comes to the emergency department accompanied by his partner. He is complained of headache body aches sore throat and cough over the last 48 hours. Reportedly had a fever over 100 this afternoon.'s partner and children are not currently ill. No other known exposure to infectious disease. He has had a mild cough which has been nonproductive. No wheezing. No vomiting but some loose stools. No known exposure to COVID and is unimmunized against COVID-19. Is a tobacco user and no history of asthma or other cardiorespiratory problems. Associated symptoms: Reports cough, headache(s) and malaise; Deny chest pain, dyspnea, nausea, rash, palpitations or vomiting Review of Systems Const: Reports: fever(s), chills, body aches and malaise Eyes: Denies: change in vision or blurry vision ENMT: Reports: throat pain and odynophagia; Denies: enlarged tonsils, ear or mastoid pain, nasal discharge, nasal congestion or nasal obstruction Card: Denies: chest pain or palpitations Resp: Reports: non-productive cough; Denies: dyspnea or wheezing GI: Reports: diarrhea; Denies: abdominal pain, nausea or vomiting : Denies: flank pain, dysuria or urinary frequency Musc: Denies: neck pain, back pain, extremity pain or extremity swelling Skin/Breast: Denies: rash Neuro: Reports: headache(s) Psych: Denies: anxiety or depression [facility] ED PFSH: Social History Smoking and tobacco status: current every day smoker e-cigarettes E-Cigarette Details: vaporizer device Current gender identity: Male Physical Exam Narrative: EXAM NARRATIVE: Is alert appears to be in no acute distress. Talks in normal voice without any hoarseness or stridor. Const: COMMON NORMALS: no acute distress and patient oriented x3 GENERAL APPEARANCE: cooperative and comfortable HENMT: COMMON NORMALS: normocephalic, TM's normal bilaterally, Normal external nose present, Normal nasal mucous membranes and turbinates present, moist oral mucous membranes and oropharynx normal HEAD & SCALP: normocephalic FACE & SINUS: normal facial exam and sinuses nontender NOSE: Normal external nose present and Normal nasal mucous membranes and turbinates present TYMPANIC MEMBRANE: TM's normal bilaterally THROAT: no peritonsillar mass and uvula not laterally displaced Eye: COMMON NORMALS: Equal, round and reactive pupils present, EOMs intact bilaterally and conjunctivae normal CONJUNCTIVA: Yes conjunctivae normal PUPIL: Yes Equal, round and reactive pupils present Neck/C-Spine: COMMON NORMALS: full ROM, supple and no meningeal signs OTHER: A few small anterior small nodes that are mildly tender. Chest: COMMONS NORMALS: normal inspection of the chest Resp: COMMON NORMALS: normal respiratory effort, No retractions and clear to auscultation bilaterally AUSCULTATION: clear to auscultation bilaterally Cardio: COMMON NORMALS: regular rate, regular rhythm, No murmurs present (Cardio) and Peripheral pulses 2+ throughout RATE: regular rate RHYTHM: regular rhythm PERIPHERAL PULSES: Peripheral pulses 2+ throughout GI: COMMON NORMALS: Normal to inspection, nondistended, normoactive bowel sounds present, Soft to palpation and non-tender PALPATION: Yes Soft to palpation : COMMON NORMALS: Yes no CVA tenderness BLADDER/KIDNEY EXAM: Yes no CVA tenderness Back/Pelvis: COMMON NORMALS: no CVA tenderness and thoraco-lumbar ROM normal Extremity: COMMON NORMALS: normal to inspection, full ROM and capillary refill normal Neuro: COMMON NORMALS: patient oriented x3, moves all extremities, no focal motor deficits and no sensory deficits noted MENINGEAL SIGNS: Yes no meningeal signs Skin: COMMON NORMALS: no rashes or lesions noted and turgor normal GENERAL SKIN EXAM: no rashes or lesions noted and turgor normal Course Vital Signs: Vital signs: Vital Signs Temperature 97.5 F L 01/16/22 17:44 Pulse Rate 54 L 01/16/22 20:02 Respiratory Rate 18 01/16/22 20:02 Blood Pressure 129/78 01/16/22 20:02 Pulse Oximetry 100 01/16/22 20:02 Oxygen Delivery Me thod 01/16/22 20:02 [facility] - General Adult Medical Decision Making Patient with 48-hour history of mild cough nonproductive congestion mild sore throat and painful swallowing with subjective fevers. Clinical examination is reassuring. No evidence of call picture that suggest peritonsillar abscess or other significant bacterial infection of the oropharynx. Chest x-ray is reassuring. COVID and strep tests are negative. I discussed current findings and recommendations with patient and spouse. No evidence of an ongoing emergency medical condition we will treat symptomatically with close follow-up. I advised him to stop smoking. Lab Data Radiology Impressions Chest X-Ray 01/16/22 18:33 IMPRESSION: No acute findings or interval change. Laboratory Results SARS-CoV-2 Ag (Rapid) negative (Negative) 01/16/22 19:35 Group A Strep Rapid Negative (Negative) 01/16/22 19:35 Discharge Plan Discharge Patient Disposition: Home Clinical Impression: Pharyngitis Condition: Stable Prescriptions: No Action No Known Home Medications Discharge Orders: Discharge ED (Routine); Ordered 01/16/22 Ordered By: Salvador Lynch Discharge Diet: Usual diet Discharge Activity: Increase activity as tolerated Patient Instructions: Pharyngitis (ED), Opioid Safety, Pain Management Activity Restrictions/Additional Instructions: No evidence of a serious bacterial infection on your evaluation today. We have given you some medicine in the emergency department and will have an effect over the next several days to decrease soreness and swelling. Continue with [id number] nasal rinses with saline, acetaminophen or ibuprofen for fever or pain. If you develop any worsening symptoms such as progressive difficulty swallowing, wheezing, high fevers or other concerns return to this or the nearest emergency department. Stop smoking cigarettes. Coding Level of Care Code ED Crime Data Specialist for Patria Cohen Exam Comprehensive
[2022-01-16 20:02] VITALS: BP 129/78; PULSE 54; RESP 18; O2SAT 100
[2022-01-16 20:02] LABS: SARS Covid-2 Antigen negative (Negative)
[2022-01-16 20:33] LABS: Rapid Strep A Test Negative (Negative)
[2022-01-16] MEDS: dexamethasone 10 mg/mL INJ IM (20:52)
== END 2022-01-16 20:54 | disposition home or self-care (01) ==
PROVIDERS: Emergency Medicine; Emergency Provider Emergency Medicine
DX: J02.9 Acute pharyngitis, unspecified (principal); Z20.822 Contact with and (suspected) exposure to COVID-19; F17.290 Nicotine dependence, other tobacco product, uncomplicated
CPT/HCPCS: 71045; 87081; 87426; 87880; 96372; 99284; J1100

== ENCOUNTER → 2022-02-12 10:34 | Outpatient (BNVA) | payer SELFPAY | PROVIDERS: Visit Provider Nurse Practitioner Family | DX: R11.10 Vomiting, unspecified (principal) | CPT/HCPCS: 87400 ==

== ENCOUNTER 2022-04-05 21:08 | Emergency (ER) | payer BC, SELFPAY ==
[2022-04-05 21:17] VITALS: BP 116/73; PULSE 57; RESP 16; TEMP 36.8; O2SAT 98
--- NOTE | 2022-04-05 21:42 | ED_ITS ---
HPI - General Adult General: Chief complaint: General Medical Stated complaint: possible food stuck in throat Time Seen by Provider: 04/05/22 21:40 Source: patient Mode of arrival: ambulatory Limitations: no limitations History of Present Illness: 31-year-old male states that he ate and meatball earlier today and stated that he had some tightness. Been able to drink he states he been able drink and swallow just feels like something stuck. Denies any vomiting denies any worsening proving factors. Associated symptoms: Deny chest pain, dyspnea, headache(s), nausea, rash or vomiting Review of Systems Const: Denies: fever(s), chills, body aches or change in appetite Eyes: Denies: blurry vision or eye discomfort ENMT: Denies: throat pain or dental pain Card: Denies: chest pain Resp: Denies: dyspnea GI: Denies: abdominal pain, nausea, vomiting or diarrhea : Denies: dysuria Musc: Denies: neck pain or back pain Skin/Breast: Denies: rash Neuro: Denies: headache(s) Psych: Denies: depression Amrik/Lymph: Denies: easy bruising All/Imm: Denies: urticaria PFSH ED PFSH: Social History Smoking and tobacco status: current every day smoker e-cigarettes E-Cigarette Details: vaporizer device Current gender identity: Male Physical Exam Const: COMMON NORMALS: no acute distress, patient oriented x3 and healthy appearing HENMT: COMMON NORMALS: normocephalic and atraumatic HEAD & SCALP: normocephalic and atraumatic Eye: COMMON NORMALS: Equal, round and reactive pupils present and EOMs intact bilaterally PUPIL: Yes Equal, round and reactive pupils present Neck/C-Spine: COMMON NORMALS: full ROM and supple Chest: COMMONS NORMALS: normal inspection of the chest and normal palpation of entire chest wall Resp: COMMON NORMALS: normal respiratory effort, No retractions, No use of accessory muscles and clear to auscultation bilaterally AUSCULTATION: clear to auscultation bilaterally Cardio: COMMON NORMALS: regular rate, regular rhythm and No murmurs present (Cardio) RATE: regular rate RHYTHM: regular rhythm GI: COMMON NORMALS: Normal to inspection, nondistended, normoactive bowel sounds present, Soft to palpation, non-tender and no masses PALPATION: Yes Soft to palpation Extremity: COMMON NORMALS: normal to inspection and full ROM Neuro: COMMON NORMALS: patient oriented x3, moves all extremities and no focal motor deficits Psych: COMMON NORMALS: mental status grossly normal, Normal thought process present and cooperative THOUGHT PROCESS: Normal thought process present Skin: COMMON NORMALS: no rashes or lesions noted and no wounds GENERAL SKIN EXAM: no rashes or lesions noted Course Vital Signs: Vital signs: Vital Signs Temperature 98.3 F 04/05/22 21:17 Pulse Rate 57 L 04/05/22 21:17 Respiratory Rate 16 04/05/22 21:17 Blood Pressure 116/73 04/05/22 21:17 Pulse Oximetry 98 04/05/22 21:17 Oxygen Delivery Me thod 04/05/22 21:17 MDM - General Adult Medical Decision Making Patient presents here with foreign body sensation likely from meat quality eaten earlier that has passed he is able to swallow liquids and solids here he is well-appearing here in no distress he stable for discharge return if worsening. Discharge Plan Discharge Patient Disposition: Home Clinical Impression: Esophageal foreign body Condition: Stable Prescriptions: No Action oseltamivir [Tamiflu] 75 mg capsule 75 mg PO BID 5 Days Qty: 10 0RF Discharge Orders: Discharge ED (Routine); Ordered 04/05/22 Ordered By: Chandu Downey Discharge Diet: Advance as tolerated Discharge Activity: Resume usual activity Patient Instructions: Esophageal Foreign Body (ED) Coding Level of Care Code ED Microfilm Machine Operator for Patria Fwnathalia Exam Comprehensive
[2022-04-05] MEDS: lidocaine 2% viscous 15 ML, aluminum-mag hydrox-simethicon 30 ML, sucralfate oral liq 1 GM PO (21:53)
== END 2022-04-05 22:16 | disposition home or self-care (01) ==
PROVIDERS: Emergency Provider Emergency Medicine
DX: T18.128A Food in esophagus causing other injury, initial encounter (principal); F17.290 Nicotine dependence, other tobacco product, uncomplicated; X58.XXXA Exposure to other specified factors, initial encounter
CPT/HCPCS: 96372; 99284; J1610

== ENCOUNTER → 2022-05-16 07:32 | Outpatient (BNVA) | payer BC, SELFPAY | PROVIDERS: Visit Provider Family Medicine Adult Medicine | DX: B34.9 Viral infection, unspecified (principal) | CPT/HCPCS: 87400 ==

== ENCOUNTER 2022-08-08 09:52 | Outpatient (CLI) | payer OTHER, SELFPAY ==
--- NOTE | 2022-08-08 10:16 | XR_ITS ---
WS: [id number] Thoracic spine, AP and lateral views, 08/08/2022 Clinical Data: back pain Comparison: None. Findings: No compression fractures are seen. The disc heights are normal. There is a minimal dextroscoliosis of lower thoracic spine. The paravertebral regions are normal. XR/XR thoracic spine 2V [id number] Impression: Dextroscoliosis of the lower thoracic spine.
--- NOTE | 2022-08-08 10:16 | XR_ITS ---
WS: [id number] Lumbar spine, 3 views, 08/08/2022 Clinical Data: back pain Comparison: None. Findings: No compression fractures or subluxation is seen. No disc space narrowing is seen. The transverse proc esses and SI joints are normal. Is a minimal dextroscoliosis of the lumbar spine. XR/XR lumbar spine 2-3V* [id number] Impression: Minimal dextroscoliosis of the lumbar spine.
== END 2022-08-08 09:53 | disposition home or self-care (01) ==
PROVIDERS: PCP Family Medicine; Visit Provider Family Medicine
DX: M54.9 Dorsalgia, unspecified (principal); G89.29 Other chronic pain; M41.9 Scoliosis, unspecified
CPT/HCPCS: 72070; 72100; 80053; 80061; 84439; 84443; 85025; 86376

== ENCOUNTER → 2023-01-24 09:56 | Outpatient (BNVA) | payer OTHER, SELFPAY | PROVIDERS: PCP Family Medicine; Visit Provider Family Medicine | DX: E03.9 Hypothyroidism, unspecified (principal) | CPT/HCPCS: 84439; 84443 ==

== ENCOUNTER → 2023-03-24 13:14 | Outpatient (BNVA) | payer OTHER, SELFPAY | PROVIDERS: PCP Family Medicine; Visit Provider Registered Nurse Neonatal Intensive Care | DX: R05.9 Cough, unspecified (principal); R09.89 Other specified symptoms and signs involving the circulatory and respiratory systems; J06.9 Acute upper respiratory infection, unspecified | CPT/HCPCS: 87400 ==

== ENCOUNTER → 2023-05-09 15:33 | Outpatient (BNVA) | payer OTHER, SELFPAY | PROVIDERS: PCP Family Medicine; Visit Provider Family Medicine | DX: E03.9 Hypothyroidism, unspecified (principal) | CPT/HCPCS: 84439; 84443 ==

== ENCOUNTER 2023-08-23 14:07 | Emergency (ER) | payer OTHER, SELFPAY ==
[2023-08-23 14:17] VITALS: BP 116/76; PULSE 64; RESP 16; TEMP 36.5; O2SAT 98
--- NOTE | 2023-08-23 14:22 | XRR_ITS ---
PROCEDURE INFORMATION: Exam: XR Left Ribs with PA Chest Exam date and time: 08/23/2023 2:38 PM Age: 33 years old Clinical indication: Injury or trauma; Fall; Rib area, left side; Blunt trauma; Patient HX: Lt posterior upper/mid rib pain after pinning incident TECHNIQUE: Imaging protocol: Radiologic exam of the left ribs with PA chest. Views: 3 views COMPARISON: CR XR chest 1V portable [id number] 01/16/2022 6:42 PM FINDINGS: Lungs: Unremarkable. No consolidation. Pleural spaces: Unremarkable. No pleural effusion. No pneumothorax. Heart/Mediastinum: Unremarkable. No cardiomegaly. Bones/joints: Unremarkable. XR/XR ribs LT mn 3V w CXR1V [id number] IMPRESSION: No acute findings.
--- NOTE | 2023-08-23 14:32 | W.ED.GENADLT ---
HPI - General Adult General: Chief complaint: General Medical Stated complaint: right side shoulder, vehicle fell on top of pt Time Seen by Provider: 08/23/23 14:23 History of Present Illness: Patient presents to the ER with complaints of left-sided rib pain. Patient says he is work underneath a car when he had it on kim stands on the kim stands fell over and Smashed him in between the car and the ground. Patient stated he was able to crawl out from underneath the car. Patient's having pain when he takes a big deep breath and moves on his left rib cage area. Patient does not complain of shortness of breath. Review of Systems General: Reports: 10 or more systems reviewed and unremarkable except in HPI and below PFSH ED PFSH: Medical History Hypothyroidism Chronic back pain Methamphetamine use disorder, moderate, in sustained remission Viral syndrome Surgical History No pertinent past surgical history Family History Father No problems noted. Mother Thyroid disease Fibromyalgia Grandfather Cancer Grandmother Stroke Social History Smoking and tobacco/nicotine status: current every day tobacco/nicotine user cigarettes Packs smoked per day: 0.25 Years cigarettes smoked: 10 Quit status (tobacco/nicotine): not considering quitting Second hand smoke exposure: Yes Alcohol intake: former Substance/Drug Use: current Substance/Drug use frequency: daily Current gender identity: Male Physical Exam Const: COMMON NORMALS: no acute distress, average body habitus, patient oriented x3, no limitations, healthy appearing, alert and well nourished HENMT: COMMON NORMALS: normocephalic, atraumatic, hearing grossly normal bilaterally, external ears normal, Normal external nose present and moist oral mucous membranes HEAD & SCALP: normocephalic and atraumatic NOSE: Normal external nose present EXTERNAL EAR: Yes external ears normal Neck/C-Spine: COMMON NORMALS: full ROM, no lymphadenopathy, supple, no meningeal signs, no JVD and Thyroid normal THYROID: Thyroid normal Chest: OTHER: Tender to palpate over left lateral chest wall, abrasions noted on left posterior chest wall and scapular region. Resp: COMMON NORMALS: normal respiratory effort, No retractions, No use of accessory muscles and clear to auscultation bilaterally AUSCULTATION: clear to auscultation bilaterally Cardio: COMMON NORMALS: no JVD, regular rate, regular rhythm, S1 normal heart sound present, S2 normal heart sound present, No gallops present (Cardio), No clicks present (Cardio) and No murmurs present (Cardio) RATE: regular rate RHYTHM: regular rhythm HEART SOUNDS: S1 normal heart sound present and S2 normal heart sound present Neuro: COMMON NORMALS: patient oriented x3 SENSORIUM/ORIENTATION: Yes alert MENINGEAL SIGNS: Yes no meningeal signs Course Vital Signs: Vital signs: Vital Signs Temperature 97.7 F 08/23/23 14:17 Pulse Rate 64 08/23/23 14:17 Respiratory Rate 16 08/23/23 14:17 Blood Pressure 116/76 08/23/23 14:17 Pulse Oximetry 98 08/23/23 14:17 MDM - General Adult Medical Decision Making Patient was given 60 mg Toradol IM and rib series of the left ribs was obtained which was negative but per the radiologist. This results was discussed with the patient. Patient will be given 2 days off if he decides to take them. Otherwise to be discharged and can follow-up with his PCP. Differential Diagnosis Chest wall trauma, rib fracture, contusion Medical Records I reviewed the patient's medical records. Lab Data I reviewed the patient's lab results. Radiology Impressions Ribs X-Ray 08/23/23 14:22 IMPRESSION: No acute findings. All radiology interpretation(s) finalized by discharge Discharge Plan Discharge Patient Disposition: Home Clinical Impression: Chest wall contusion Qualifiers: Encounter type: initial encounter Laterality: left Qualified Code(s): S20.212A - Contusion of left front wall of thorax, initial encounter Condition: Stable Prescriptions: No Action omeprazole 40 mg capsule,delayed release(DR/EC) 40 mg PO DAILY Qty: 90 1RF fluticasone propionate 50 mcg/actuation spray,suspension 2 spray intranasal DAILY PRN (Reason: allergy symptoms) Qty: 16 0RF Rx Instructions: administer into each nostril amoxicillin-pot clavulanate 875-125 mg tablet 1 tab PO BID 7 Days Qty: 14 0RF cetirizine [Zyrtec] 10 mg tablet 10 mg PO DAILY PRN (Reason: allergy symptoms) Qty: 15 0RF levothyroxine 50 mcg capsule See Rx Instructions PO DAILY Qty: 116 1RF Rx Instructions: 1 tablet friday to friday, two tablets on friday and friday orally daily; Discharge Orders: Discharge ED (Routine); Ordered 08/23/23 Ordered By: Ramón Gabriel Referrals: Jose Plata MD [Primary Care Provider] - 1 week Patient Instructions: Chest Wall Pain (ED) Activity Restrictions/Additional Instructions: The x-rays were read by the radiologist as no acute fracture. Rib fractures may miss small fractures. Please take [id number] Tylenol and Motrin as directed for pain for the next 2 to 3 days. Please follow-up with your family proximal physician within next 7 days for further evaluation and treatment. Stand Alone Forms: Work/School Release Coding Level of Care Code ED Corporate Consultant for Patria Cohen
[2023-08-23] MEDS: ketorolac 60 mg/2 mL INJ IM (14:56)
[2023-08-23 16:17] VITALS: BP 116/68; PULSE 82; RESP 16; O2SAT 99
== END 2023-08-23 16:17 | disposition home or self-care (01) ==
PROVIDERS: Emergency Provider Emergency Medicine; PCP Family Medicine
DX: S20.212A Contusion of left front wall of thorax, initial encounter (principal); W20.8XXA Other cause of strike by thrown, projected or falling object, initial encounter; F17.210 Nicotine dependence, cigarettes, uncomplicated
CPT/HCPCS: 71101; 96372; 99284; J1885

== ENCOUNTER 2023-11-26 18:58 | Emergency (ER) | payer OTHER, SELFPAY ==
[2023-11-26 19:05] VITALS: BP 121/81; PULSE 71; RESP 14; TEMP 36.4; O2SAT 96; BMI 17.7
--- NOTE | 2023-11-26 19:50 | ED_ITS ---
HPI - Skin/Abscess/Foreign Bdy General: Chief complaint: Skin/Abscess/Foreign Body Stated complaint: rash on right arm speading Time Seen by Provider: 11/26/23 19:12 Source: patient and family Mode of arrival: ambulatory Limitations: no limitations History of Present Illness: Patient is a 33-year-old male who presents to ED today with a complaint of a spreading pruritic rash to his right arm. When asked about plant/poison teresa exposure, he does tell me he was pulling weeds around tree beds the other day. He feels like he may have a few lesions starting to his left arm. No other exposed areas. Patient also has a complaint of decreased hearing to the left ear. He was told by a nurse at work that he has a earwax impaction. MD complaint: rash Onset (ago): day(s) Tetanus up to date: yes Location: RUE Severity: mild Quality: burning and pruritic Relieving factors: none Exacerbating factors: none Associated symptoms: Reports no associated symptoms; Deny chills, fever(s) or vomiting Treatments prior to arrival: none Related Data Previous Rx's Medication Instructions Recorded cyclobenzaprine 10 mg tablet 10 mg PO TID PRN muscle spasm #60 09/03/23 tabs meloxicam 15 mg tablet 15 mg PO DAILY #30 tabs 09/03/23 PAIN RELIEF LIDOCAINE 4% PATCH 6S See Rx Instructions .Route 10/27/23 .COMPLEX #30 patches levothyroxine 50 mcg tablet See Rx Instructions .Route 10/28/23 .COMPLEX #116 tabs Allergies Allergy/AdvReac Type Severity Reaction Status Date / Time No Known Allergies Allergy Verified 09/22/23 15:30 Review of Systems Const: Denies: fever(s), chills, body aches, fatigue or malaise ENMT: Reports: change in hearing; Denies: tinnitus or disequilibrium Card: Denies: chest pain Resp: Denies: dyspnea GI: Denies: abdominal pain, vomiting or diarrhea Musc: Denies: neck pain, back pain, extremity pain, extremity swelling, joint pain, joint swelling, joint redness, joint warmth or limited range of motion Skin/Breast: Reports: rash and pruritus Neuro: Denies: headache(s), numbness in extremities, weakness in extremities, sensory changes or dizziness [facility] ED PFSH: Medical History Hypothyroidism Chronic back pain Methamphetamine use disorder, moderate, in sustained remission Viral syndrome Surgical History No pertinent past surgical history Family History Father No problems noted. Mother Thyroid disease Fibromyalgia Grandfather Cancer Grandmother Stroke Social History Smoking and tobacco/nicotine status: current every day tobacco/nicotine user cigarettes Packs smoked per day: 0.25 Years cigarettes smoked: 10 Quit status (tobacco/nicotine): not considering quitting Second hand smoke exposure: Yes Alcohol intake: former Substance/Drug Use: current Substance/Drug use frequency: daily Current gender identity: Male Physical Exam Const: COMMON NORMALS: no acute distress, average body habitus, patient oriented x3, no limitations, healthy appearing, alert and well nourished HENMT: COMMON NORMALS: TM's normal bilaterally EXTERNAL AUDITORY CANAL: Abnormal EAC present EAC laterality: left Details: cerumen impaction (removed-TM normal) TYMPANIC MEMBRANE: TM's normal bilaterally Extremity: GENERAL: Yes normal exam except as noted Neuro: COMMON NORMALS: patient oriented x3, moves all extremities, no focal motor deficits and no sensory deficits noted SENSORIUM/ORIENTATION: Yes alert Skin: NARRATIVE SKIN EXAM: erythematous rash with microvesicular grouping/linear streaking consistent with a plant dermatitis to R UE; few scattered areas to L arm Procedures Ear Wax Removal Left Ear: Results: Re-examined: cerumen removed completely TM Examination: TM(s) intact, normal appearance Ear Canal Exam: atraumatic Patient Tolerated Procedure: well Complications: no problems Course Vital Signs: Vital signs: Vital Signs Temperature 97.6 F 11/26/23 19:05 Pulse Rate 71 11/26/23 19:05 Respiratory Rate 14 11/26/23 19:05 Blood Pressure 121/81 11/26/23 19:05 Pulse Oximetry 96 11/26/23 19:05 Oxygen Delivery Me thod Room Air 11/26/23 19:05 MDM - Skin/Abscess/Foreign Bdy Medicial Decision Making Patient will be treated with IM short acting and long-acting steroids for his plant dermatitis. Recommend continued conservative/OTC therapies at home. No radiology studies performed this visit Discharge Plan Discharge Patient Disposition: Home Clinical Impression: Dermatitis due to plant Cerumen impaction Qualifiers: Laterality: left Qualified Code(s): H61.22 - Impacted cerumen, left ear Condition: Stable Prescriptions: No Action cyclobenzaprine 10 mg tablet 10 mg PO TID PRN (Reason: muscle spasm) Qty: 60 0RF meloxicam 15 mg tablet 15 mg PO DAILY Qty: 30 0RF PAIN RELIEF LIDOCAINE 4% PATCH 6S See Rx Instructions .ROUTE .COMPLEX Qty: 30 0RF Dose Instruction: APPLY 1 PATCH TOPICALLY TO THE SKIN DAILY NEEDED FOR PAIN Rx Instructions: APPLY 1 PATCH TOPICALLY TO THE SKIN DAILY NEEDED FOR PAIN levothyroxine 50 mcg tablet See Rx Instructions .ROUTE .COMPLEX Qty: 116 0RF Dose Instruction: TAKE 1 TABLET BY MOUTH DAILY FRIDAY TO FRIDAY,AND 2 TABLETS ON FRIDAY AND FRIDAY Rx Instructions: TAKE 1 TABLET BY MOUTH DAILY FRIDAY TO FRIDAY,AND 2 TABLETS ON FRIDAY AND FRIDAY Discharge Orders: Discharge ED (Routine); Ordered 11/26/23 Ordered By: Mariaa Ladd Referrals: Jose Plata MD [Primary Care Provider] - Patient Instructions: Poison Teresa (ED) Coding Level of Care Code ED Rehab Liaison for Patria Cohen
[2023-11-26] MEDS: triamcinolone 40 mg/mL SDV IM (20:21)
[2023-11-26] MEDS: hydrocortisone 100 mg/2 mL SDV 50 MG IM (20:21)
[2023-11-26 20:22] VITALS: BP 129/87; PULSE 56; O2SAT 98
== END 2023-11-26 20:30 | disposition home or self-care (01) ==
PROVIDERS: Emergency Provider Physician Assistant; PCP Family Medicine
DX: L25.5 Unspecified contact dermatitis due to plants, except food (principal); H61.22 Impacted cerumen, left ear; F17.210 Nicotine dependence, cigarettes, uncomplicated
CPT/HCPCS: 96372; 99284; J1720; J3301

== ENCOUNTER → 2024-02-17 13:28 | Outpatient (BNVA) | payer OTHER, SELFPAY | PROVIDERS: PCP Family Medicine; Visit Provider Family Medicine | DX: E03.9 Hypothyroidism, unspecified (principal) | CPT/HCPCS: 80048; 84439; 84443 ==

== ENCOUNTER 2024-03-11 11:56 | Emergency (ER) | payer SELFPAY ==
[2024-03-11 12:03] VITALS: BP 122/78; PULSE 70; RESP 18; TEMP 36.3; O2SAT 100; BMI 17.6
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
--- NOTE | 2024-03-11 12:30 | CT_ITS ---
WS: [id number] CT PELVIS NONCONTRAST HISTORY: fall, sacral pain TECHNIQUE: Contiguous imaging is performed of the pelvis without contrast. Coronal and sagittal refor mats are reviewed. All CT scans at [facility] use at least one of these dose optimization melody hniques: automated exposure control; mA and/or kV adjustment per patient size (includes targeted exam s where dose is matched to clinical indication); or iterative reconstruction. DLP: 474.07 mGy.cm COMPARISON: 11/18/2017 No definite fracture is identified within the sacrum. There is a very slight buckle configuration of the sacrum at the level of S1 but this was also present on the study of 11/18/2017. SI joints are not w idened. No fracture of the leanna. Normal position of the femoral heads. Normal pubic rami. Spina bifid a occulta at S1. No soft tissue hematoma. CT/CT pelvis wo con [id number] IMPRESSION: 1. No sacral fracture identified. If pain continues MRI may be of benefit to e valuate for marrow edema and occult fracture. 2. No soft tissue hematoma.
[2024-03-11] MEDS: ibuprofen 600 mg Tablet PO (12:51)
[2024-03-11 13:24] VITALS: PULSE 76; RESP 18; O2SAT 96
[2024-03-11 14:19] VITALS: BP 121/76; PULSE 71; O2SAT 97
== END 2024-03-11 14:20 | disposition home or self-care (01) ==
PROVIDERS: Emergency Provider Emergency Medicine; PCP Family Medicine
DX: S30.0XXA Contusion of lower back and pelvis, initial encounter (principal); V28.09XA Other motorcycle driver injured in noncollision transport accident in nontraffic accident, initial encounter; F17.210 Nicotine dependence, cigarettes, uncomplicated
CPT/HCPCS: 72192; 99284

== ENCOUNTER → 2025-02-07 11:32 | Outpatient (BNVA) | payer SELFPAY | PROVIDERS: PCP Family Medicine; Visit Provider Family Medicine | DX: E03.9 Hypothyroidism, unspecified (principal) | CPT/HCPCS: 80053; 80061; 84439; 84443; 85025 ==